=== PATIENT | female | born 2000 | race Caucasian/White ===

== ENCOUNTER 2018-12-13 13:46 | Emergency (ER) | payer OTHER ==
[~2018-12-13] VITALS: Ht 149.9 cm; Wt 45.4 kg
[2018-12-13 13:56] VITALS: BP 112/65
[2018-12-13 14:47] VITALS: BP 110/53
== END 2018-12-13 14:48 | disposition home or self-care (01) ==
LOC: MED 13:46
DX: M35.01 Sjogren syndrome with keratoconjunctivitis (principal)
CPT/HCPCS: 99282; 99283